=== PATIENT | female | born 1965 | race Caucasian/White ===

== ENCOUNTER 2017-11-07 23:12 | Emergency (ER) | payer OTHER ==
[2017-11-08] MEDS ORDERED: AMOXICILLIN/CLAVULANATE POT 875/125 MG TAB PO ONE (00:48)
--- NOTE | 2017-11-08 00:50 | EDPHY ---
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 She sustained small wounds to fingers on both sides. The wounds have been cleaned. Her tetanus is up-to-date. However she is concerned as the dog is currently being evaluated for leptospirosis. No report of abnormal coolness or paresthesias in the finger. No difficulty moving them. No other injuries reported. Smoking Status: Never smoked Physical Exam: General: Alert, nontoxic Skin: Multiple abrasions and a few small puncture wounds to the digits of both hands. Musculoskeletal: Patient is moving all joints in all granda in all digits well. She is moving both of the wrists well. Vascular: Radial pulses 2+. Capillary refill brisk in all digits of the hands. Neurologic: Sensation intact in all digits of the hands. Constitutional: Initial Vital Signs Temperature (C) 37.0 C 11/07/17 23:13 Heart Rate 85 11/07/17 23:13 Respiratory Rate 16 11/07/17 23:13 Blood Pressure 110/93 H 11/07/17 23:13 O2 Sat (%) 96 11/07/17 23:13 O2 Delivery Mode Room Air Allergies/Adverse Reactions: No Known Allergies Allergy (Unverified 11/07/17 23:16) Home Medications: Medication Instructions Recorded LAMISIL 11/07/17 Levothyroxine 11/07/17 Amoxicillin/Clavulanate Pot 875 mg PO BID #14 tab 11/08/17 [Augmentin 875 MG TAB (*)] MDM/Departure - MDM Medications Given: Discontinued Medications Amoxicillin/Clavulanate Potassium (Augmentin 875mg) 875 mg PO EDNOW ONE PRN Reason: Protocol Stop: 11/08/17 00:49 Last Admin: 11/08/17 01:12 Dose: 875 mg ED Course/Re-evaluation: Patient seen under the supervision of my secondary supervising physician Dr. Familia Eddy. Patient presents to the emergency department for a dog bite to both of her hands. The hands are neurovascularly intact. She has good musculoskeletal control. X-rays are negative. I have consulted with Infectious Disease, Dr. Michael Zheng. He believes this is a low transmission route for leptospirosis. He does not believe prophylactic antibiotics need to be started but if patient wishes she should be placed on a week course of doxycycline 100 mg twice daily. I have discussed this with the patient. She would prefer not to start doxycycline. She will follow up on evaluation of the dog. However we have chosen to start her on Augmentin for general animal bites since she has multiple wounds to the hands. She is asked to follow up with worker's compensation or a hand doctor for recheck. Home care including wound care is discussed. Return precautions are given. Patient voiced understanding and agreement with plan. - Depart Disposition: Home, Routine, Self-Care Clinical Impression: Dog bite Qualifiers: Encounter type: initial encounter Qualified Code(s): W54.0XXA - Bitten by dog, initial encounter Condition: Good Instructions: Animal Bite (ED), Acute Wounds (ED) Additional Instructions: Please follow-up with worker's compensation and a hand doctor next week for continued care Take antibiotics as prescribed until finished If the animal you were bitten by continues to be evaluated is positive for leptospirosis talk to worker's compensation or infectious Disease If symptoms worsen or new symptoms develop return to the emergency room for recheck Prescriptions: Amoxicillin/Clavulanate Pot [Augmentin 875 MG TAB (*)] 875 mg PO BID #14 tab Referrals: PATRICIA ANGEL [Other] - As per Instructions Brandy Cuadra MD [Medical Doctor] - As per Instructions
[2017-11-08 01:20] VITALS: BP 110/92
== END 2017-11-08 01:20 | disposition home or self-care (01) ==
DX: S61.451A Open bite of right hand, initial encounter (principal); S61.452A Open bite of left hand, initial encounter; W54.0XXA Bitten by dog, initial encounter; Y92.89 Other specified places as the place of occurrence of the external cause; Y99.8 Other external cause status; Y93.89 Activity, other specified